=== PATIENT | male | born 1990 | race African-American/Black ===

== ENCOUNTER 2020-12-15 21:42 | Emergency (ER) | payer OTHER ==
--- NOTE | 2020-12-15 22:10 | PHYS DOC ---
Past History Past Medical History: Anxiety, GERD General Adult EDM: Chief Complaint: ABDOMINAL PAIN HPI: HPI: "...I got this severe abdomen pain... all over.. but mainly in my upper and right..." Patient is a 30 year old male who presents with severe generalize abdomen after eating Jerk chicken at 2100 hrs.at the [facility]. Significant other ate the same meal but did not get sick. Patient did also have pizza at 11 AM today. Patient denies any travel or specific ill contacts. No history of trauma. No history of bad food intake. Patient denies any history immunosuppression. Has only been exposed to animals his 2-year-old shepherds Josee and Midnight.. They are healthy and up-to-date vaccinations. No history of prior gallbladder disease. Has had some history of GERD. Review of Systems: Review of Systems: Constitutional: Denies fever or chills Eyes: Denies change in visual acuity HENT: Denies nasal congestion or sore throat Respiratory: Denies cough or shortness of breath Cardiovascular: Denies chest pain or edema GI: Complains of right upper and epigastric abdominal pain, nausea,. Denies vomiting, bloody stools or diarrhea : Denies dysuria Musculoskeletal: Denies back pain or joint pain Integument: Denies rash Neurologic: Denies headache, focal weakness or sensory changes Endocrine: Denies polyuria or polydipsia Lymphatic: Denies swollen glands Psychiatric: Denies depression or anxiety Family History: Family History: Noncontributory to presentation Current Medications: Current Meds: See nursing for home meds Allergies: Allergies: No known drug allergies Physical Exam: PE: Constitutional: in acute distress, non-toxic appearance. [] HENT: Normocephalic, atraumatic, bilateral external ears normal, oropharynx moist, no oral exudates, nose normal. [] Eyes: PERRLA, EOMI, conjunctiva normal, no discharge. [] Neck: Normal range of motion, no tenderness, supple, no stridor. [] Cardiovascular: Bradycardia heart rate regular rhythm, no murmur [] monitor shows a sinus bradycardia in the rates of 50s. There is some irregularity with it but appears to be related to respiratory cycles. Lungs & Thorax: Bilateral breath sounds equal at apex on auscultation [] Abdomen: Bowel sounds increased, soft, upper right and epigastric tenderness, no masses, no pulsatile masses. [] Rebound upper right quadrant . Skin: Warm, dry, no erythema, no rash. [] Back: No tenderness, no CVA tenderness. [] Extremities: No tenderness, no cyanosis, no clubbing, ROM intact, no edema. [] No Trousseau sign on heeltap Neurologic: Alert and oriented X 3, normal motor function, normal sensory function, no focal deficits noted. [] Psychologic: Affect anxious, judgement normal, mood normal. [] EKG: EKG: My interpretation of EKG shows a sinus bradycardia. Is slightly irregular heart rate but appears to be related to respiratory cycle. No findings of acute STEMI of contralateral changes. [] Radiology/Procedures: Radiology/Procedures: [][address] [id number] IMAGING REPORT Signed PATIENT: MAREK RICARDO ACCOUNT: [id number] : 1990 LOCATION: ER AGE: 30 SEX: M EXAM STATUS: REG ER ORD. PHYSICIAN: HAILY TAVARES MD REASON: n/v/severe epigastric and chest pain PROCEDURE: ACUTE ABDOMEN SERIES Exam: Acute abdominal series INDICATION: Nausea, vomiting, severe epigastric pain and chest pain TECHNIQUE: Frontal view of the chest with upright and supine views the abdomen Comparisons: None FINDINGS: The cardiomediastinal silhouette and pulmonary vessels are within normal limits. The lung and pleural spaces are clear. Air and stool are noted throughout the colon as well as rectum in a nonobstructive bowel gas pattern. No suspicious masses or calcifications. Visualized osseous structures are unremarkable. IMPRESSION: 1. Nonobstructive bowel gas pattern. 2. No acute cardiac pulmonary process. Electronically signed by: Burton Gloria MD (12/15/2020 11:25 PM) [facility] DICTATED AND SIGNED BY: BURTON GLORIA MD DATE: 12/15/202321 CC: HAILY TAVARES MD; PCP,UNKNOWN ~MTH0 0 Heart Score: C/O Chest Pain: Yes HEART Score for Chest Pain: HEART Score for Chest Pain Response (Comments) Value History Slighlty/Non-Suspicious 0 ECG Normal 0 Age < 45 0 Risk Factors 1 or 2 Risk Factors 1 Troponin < Normal Limit 0 Total 1 Risk Factors: Risk Factors: DM, Current or recent (<one month) smoker, HTN, HLP, family history of CAD, obesity. Risk Scores: Score 0 - 3: 2.5% MACE over next 6 weeks - Discharge Home Score 4 - 6: 20.3% MACE over next 6 weeks - Admit for Clinical Observation Score 7 - 10: 72.7% MACE over next 6 weeks - Early Invasive Strategies Course & Med Decision Making: Course & Med Decision Making Pertinent Labs and Imaging studies reviewed. (See chart for details) Patient push fluids. Patient avoid caffeine products. Patient avoid antihistamines. Patient to follow-up with primary care. Patient return if any concerns. Patient remain on a clear fluid diet for 2 days. Take time and ibuprofen for pain. May take Zofran 8 for active vomiting 4 times. Take milk of mag for GERD and constipation. Patient take Pepcid 20 mg twice a day. Patient have primary review ED record.. Patient return if any concerns. Patient reports marked improvement at time of discharge. Consider EGD and outpatient stress testing. Return if any concerns. Impression: 1. Abdomen pain 2. GERD/gastritis 3. Biliary colic 4. Sinus bradycardia [] Dragon Disclaimer: Dragon Disclaimer: This electronic medical record was generated, in whole or in part, using a voice recognition dictation system. Departure Departure: Referrals: PCP,UNKNOWN (PCP) Scripts Acetaminophen (ACETAMINOPHEN) 500 Mg Tablet 1000 MG PO QIDPRN for pain or fever, #120 TAB Prov: HAILY TAVARES MD 12/16/20 Ondansetron Hcl (ZOFRAN) 4 Mg Tablet 8 MG PO QIDPRN PRN for NAUSEA/VOMITING, #30 TAB Prov: HAILY TAVARES MD 12/16/20 Famotidine (PEPCID) 20 Mg Tablet 20 MG PO BID for gerd for 30 Days, #60 TAB Prov: HAILY TAVARES MD 12/16/20 Dragon Disclaimer This chart was dictated in whole or in part using Voice Recognition software in a busy, high-work load, and often noisy Emergency Department environment. It may contain unintended and wholly unrecognized errors or omissions. HIALY TAVARES MD Dec 15, 2020 22:10
[2020-12-15] MEDS ORDERED: IV RINGERS SOLUTION,LACTATED 1,000 ML IV SCH (22:30)
[2020-12-15] MEDS ORDERED: FAMOTIDINE 20 MG/2 ML VIAL IVP ONE (22:45)
[2020-12-15] MEDS ORDERED: KETOROLAC 30 MG/ML VIAL. IVP ONE (22:45)
[2020-12-15] MEDS ORDERED: ONDANSETRON PF 4 MG/2 ML VIAL. IVP ONE (22:45)
[2020-12-15] MEDS ORDERED: MAGNESIUM HYDROXIDE 2,400 MG/30 ML ORAL.SUSP. PO ONE (22:45)
--- NOTE | 2020-12-15 23:27 | RAD ---
Exam: Acute abdominal series INDICATION: Nausea, vomiting, severe epigastric pain and chest pain TECHNIQUE: Frontal view of the chest with upright and supine views the abdomen Comparisons: None FINDINGS: The cardiomediastinal silhouette and pulmonary vessels are within normal limits. The lung and pleural spaces are clear. Air and stool are noted throughout the colon as well as rectum in a nonobstructive bowel gas pattern. No suspicious masses or calcifications. Visualized osseous structures are unremarkable. IMPRESSION: 1. Nonobstructive bowel gas pattern. 2. No acute cardiac pulmonary process. Electronically signed by: Burton Basilio MD (12/15/2020 11:25 PM) [facility]
[2020-12-16 00:03] LABS: BILIRUBIN,URINE NEG (NEG); CLARITY,URINE CLEAR; COLOR,URINE YELLOW; GLUCOSE,URINE NEG (NEG); NITRITE,URINE NEG (NEG); RBC,URINE 0 /HPF (0-2); WBC,URINE OCC /HPF (0-4)
[2020-12-16 00:04] LABS: BACTERIA,URINE 0 /HPF (0-FEW); SQUAMOUS EPITHELIAL CELL,UR OCC /LPF
[2020-12-16 00:05] LABS: BASO % 1 % (0-3); EOS # 0.1 x10^3/uL (0.0-0.7); EOS % 1 % (0-3); HEMATOCRIT 40.4 % (39.0-53.0); HEMOGLOBIN 13.9 g/dL (13.0-17.5); LYMPH # 2.6 x10^3/uL (1.0-4.8); LYMPH % 28 % (24-48); MEAN CORPUSCULAR HEMOGLOBIN 33 pg (25-35); MEAN CORPUSCULAR HGB CONC 34 g/dL (31-37); MEAN CORPUSCULAR VOLUME 96 fL (79-100); MONO # 0.8 x10^3/uL (0.0-1.1); MONO % 9 % (0-9); NEUT # 5.9 x10^3uL (1.8-7.7); NEUT % 62 % (31-73); PLATELET COUNT 204 x10^3/uL (140-400); RED BLOOD COUNT 4.23 x10^6/uL (4.30-5.70); RED CELL DISTRIBUTION WIDTH 12.2 % (11.5-14.5); WHITE BLOOD COUNT 9.6 x10^3/uL (4.0-11.0)
[2020-12-16 00:15] LABS: CALCIUM 8.8 mg/dL (8.5-10.1); CREATININE 1.3 mg/dL (0.7-1.3); GFR 77.4; POTASSIUM 3.9 mmol/L (3.5-5.1)
[2020-12-16 00:21] LABS: ALBUMIN 3.9 g/dL (3.4-5.0); DIRECT BILIRUBIN 0.1 mg/dL (0.0-0.2); TOTAL BILIRUBIN 0.4 mg/dL (0.2-1.0)
[2020-12-16] MEDS ORDERED: ONDA4TAB7 PO (00:53)
[2020-12-16] MEDS ORDERED: FAMO-63 PO (00:53)
[2020-12-16] MEDS ORDERED: ACET500T68 PO (00:53)
--- NOTE | 2020-12-16 01:04 | EKG ---
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
== END 2020-12-16 01:25 | disposition home or self-care (01) ==
LOC: ER 21:42
DX: K21.9 Gastro-esophageal reflux disease without esophagitis (principal); K80.50 Calculus of bile duct without cholangitis or cholecystitis without obstruction; R00.1 Bradycardia, unspecified; F41.9 Anxiety disorder, unspecified
CPT/HCPCS: 36415; 74022; 80048; 80076; 81001; 82150; 82550; 83690; 84484; 85025; 85610; 85730; 93005; 96361; 96374; 96375; 99285; J1885; J2405; J3490; J7120